=== PATIENT | male | born 1995 | race Two or more races ===

== ENCOUNTER 2022-03-13 14:22 | Emergency (ER) | payer OTHER ==
[~2022-03-13] VITALS: Ht 188 cm; Wt 90.7 kg
[~2022-03-13 14:22] MED LIST: ACYC400 PO; ALBU90OI INH; AMOX250 PO; HYDACE5 PO; IBUP600 PO; PRED10 PO; PRED20 PO; TRAM50 PO; TRIAOI IH
== END 2022-03-13 15:54 | disposition home or self-care (01) ==
LOC: ER 14:22
DX: S61.012A Laceration without foreign body of left thumb without damage to nail, initial encounter (principal); W45.8XXA Other foreign body or object entering through skin, initial encounter
CPT/HCPCS: 12001; 90714; 99282-25

== ENCOUNTER 2022-04-12 19:01 | Emergency (ER) | payer OTHER ==
[~2022-04-12] VITALS: Ht 188 cm; Wt 68.0 kg
[2022-04-12] MEDS ORDERED: NARCAN4 M1 NS (21:41)
== END 2022-04-13 02:49 | disposition home or self-care (01) ==
LOC: ER 19:01
DX: T40.411A Poisoning by fentanyl or fentanyl analogs, accidental (unintentional), initial encounter (principal); Y92.481 Parking lot as the place of occurrence of the external cause
CPT/HCPCS: 99284

== ENCOUNTER 2022-07-10 08:25 | Emergency (ER) | payer OTHER ==
[~2022-07-10] VITALS: Ht 188 cm; Wt 88.5 kg
[~2022-07-10 08:25] MED LIST changes: +NARCAN4 M1 NS
[2022-07-10 09:48] LABS: BASOPHILS ABSOLUTE AUTO 0.03 K/mm3 (0.00-0.23); BASOPHILS PERCENT AUTO 0 % (0-2); EOSINOPHILS ABSOLUTE AUTO 0.01 K/mm3 (0.00-0.68); EOSINOPHILS PERCENT AUTO 0 % (0-6); Hematocrit 45.6 % (37.0-53.0); Hemoglobin 14.8 g/dL (13.5-17.5); IMMATURE GRAN ABSOLUTE AUTO 0.03 K/mm3 (0.00-0.10); IMMATURE GRAN PERCENT AUTO 0 % (0-1); LYMPHOCYTES PERCENT AUTO 11 % (21-46); MONOCYTES ABSOLUTE AUTO 0.66 K/mm3 (0.16-1.47); MONOCYTES PERCENT AUTO 6 % (4-13); Mean Corpuscular HGB 27.1 pg (26.0-34.0); Mean Corpuscular HGB Conc 32.5 g/dL (31.5-36.5); Mean Corpuscular Volume 83 fL (80-100); Mean Platelet Volume 8.9 fL (9.1-12.4); NEUTROPHILS ABSOLUTE AUTO 9.66 K/mm3 (1.96-9.15); NEUTROPHILS PERCENT AUTO 83 % (41-73); Platelet Count 280 K/mm3 (150-400); RDW Coefficient Variation 12.4 % (11.7-14.2); RDW Standard Deviation 37.4 fL (35.1-46.3); Red Blood Cell Count 5.47 M/mm3 (4.30-5.90); White Blood Cell Count 11.69 K/mm3 (4.00-11.30)
[2022-07-10 10:02] LABS: Albumin, Blood 4.2 g/dL (3.4-5.0); Bilirubin, Total 0.5 mg/dL (0.1-1.0); Bun/Creatinine Ratio 11.2 (12.0-20.0); Calcium, Blood 9.5 mg/dL (8.5-10.1); Creatinine, Blood 0.99 mg/dL (0.60-1.20); Potassium, Blood 3.7 mmol/L (3.5-5.5); Total Protein, Blood 8.2 g/dL (6.4-8.2)
== END 2022-07-10 11:25 | disposition home or self-care (01) ==
LOC: ER 08:25
PROVIDERS: Student in an Organized Health Care Education/Training Program
DX: R07.9 Chest pain, unspecified (principal); F17.210 Nicotine dependence, cigarettes, uncomplicated
CPT/HCPCS: 36415; 71046; 80053; 83880; 84484; 85025; 93005; 93010; A9270; J7030

== ENCOUNTER 2024-08-28 15:45 | Emergency (ER) | payer SELFPAY ==
[~2024-08-28] VITALS: Ht 188 cm; Wt 86.2 kg
[2024-08-28 15:52] VITALS: BP 160/95
[2024-08-28] MEDS ORDERED: HYDROcodone 5-APAP 325 TAB PO ONE (16:55)
[2024-08-28] MEDS ORDERED: Ibuprofen 400 MG Tab PO ONE (16:55)
== END 2024-08-28 17:19 | disposition home or self-care (01) ==
LOC: ER 15:45
DX: S61.412A Laceration without foreign body of left hand, initial encounter (principal); F17.210 Nicotine dependence, cigarettes, uncomplicated; W26.0XXA Contact with knife, initial encounter
CPT/HCPCS: 12002; 99282-25

== ENCOUNTER 2024-09-06 06:32 | Day surgery (SDC) | payer SELFPAY ==
[~2024-09-06] VITALS: Ht 188 cm; Wt 88.7 kg
[2024-09-06] MEDS ORDERED: CeFAZolin Sodium 2,000 MG VIAL ONE (06:39)
[2024-09-06] MEDS ORDERED: NS 500 ML IV ONE (07:17)
[2024-09-06] MEDS ORDERED: Midazolam HCl 1MG / ML 2ML Vial ONE (07:41)
[2024-09-06] MEDS ORDERED: FentaNYL Citrate 50 MCG/ML 2 ML Injection ONE ×2 (07:41→09:48)
[2024-09-06] MEDS ORDERED: propofoL 20 ML IV ONE ×2 (07:41→08:21)
[2024-09-06] MEDS ORDERED: Ketorolac Tromethamine 30mg Vial ONE (07:43)
[2024-09-06] MEDS ORDERED: Ondansetron HCl 2 MG / ML 2ML Vial ONE (07:43)
[2024-09-06] MEDS ORDERED: Dexamethasone Sod Phos 10 MG/ML 1ML VIAL ONE (07:43)
[2024-09-06] MEDS ORDERED: Lidocaine HCl 2% 10 ML SDA INJ ONE ×2 (08:33)
--- NOTE | 2024-09-06 08:57 | NUR ---
09/06/24 0857 SAIDA ZAVALA VITALS AT THIS TIME ARE ALL VERY GOOD. BP 119/74, P 91, O2 SAT IS 100 ON 9L. WILL DECREASE O2 TO 5- TRIAL
[2024-09-06 09:56] VITALS: BP 131/88
--- NOTE | 2024-09-06 10:45 | NUR ---
09/06/24 1045 Bhavesh Hutchins PT STATED HE WAS UNAWARE WHETHER DR. TEMPLE HAD ESCRIPTED PERSCRIPTION OR WHERE IT MIGHT HAVE GONE TO. DR. TEMPLE CALLED. DR. TEMPLE STATED PHYSICHAL PERSCRTIPTION HAD ALREADY BEEN GIVEN TO PT (BUT NOT FILLED) , AND PT SHOULD USE THAT PERSCRIPTION. PT WAS INSTRUCTED TO FILL PERSCRIPTION IMMEDIATELY AND TAKE DIRECTED. PRIOR TO D/C, PT DESCRIBED PAIN TOLERABLE, DENIED NAUSEA, AND EXPRESSED READINESS TO RETURN HOME. HE APPEARED ALERT AND RELAXED. FLACC 110.
== END 2024-09-06 10:35 | disposition home or self-care (01) ==
LOC: ORSCSDS 06:32
PROVIDERS: Orthopaedic Surgery
PROC: 0LQ80ZZ Repair Left Hand Tendon, Open Approach (ICD-10-PCS; principal; 2024-09-06 08:15)
DX: S61.238A Puncture wound without foreign body of other finger without damage to nail, initial encounter (principal); W26.0XXA Contact with knife, initial encounter; F17.210 Nicotine dependence, cigarettes, uncomplicated; Z86.19 Personal history of other infectious and parasitic diseases
CPT/HCPCS: J0690; J1100; J1885; J2003; J2250; J2405; J2704; J3010

== ENCOUNTER 2024-09-16 20:43 | Emergency (ER) | payer SELFPAY ==
[~2024-09-16] VITALS: Ht 188 cm; Wt 86.2 kg
[2024-09-16 21:11] VITALS: BP 144/89
[2024-09-16] MEDS ORDERED: Acetaminophen 325 MG TABLET PO ONE (21:20)
[2024-09-16] MEDS ORDERED: Ketorolac Tromethamine 15mg Vial IM ONE (21:20)
== END 2024-09-16 21:36 | disposition home or self-care (01) ==
LOC: ER 20:43
DX: S56.402A Unspecified injury of extensor muscle, fascia and tendon of left index finger at forearm level, initial encounter (principal); F17.210 Nicotine dependence, cigarettes, uncomplicated; X58.XXXA Exposure to other specified factors, initial encounter; Z98.890 Other specified postprocedural states
CPT/HCPCS: 96372; 99283-25; A9270; J1885

== ENCOUNTER 2024-09-30 10:47 | Day surgery (SDC) | payer SELFPAY ==
[~2024-09-30] VITALS: Ht 188 cm; Wt 89.9 kg
[~2024-09-30 10:47] MED LIST changes: +Lactated Ringer's 1,000 ML IV ONE; +Lidocaine HCl 2% 10 ML SDA ONE; +NS 0 ML IV ONE
[2024-09-30] MEDS ORDERED: CeFAZolin Sodium 2,000 MG VIAL ONE (10:53)
[2024-09-30] MEDS ORDERED: Lactated Ringer's 1,000 ML IV ONE ×2 (11:02)
[2024-09-30] MEDS ORDERED: Acetaminophen 500 MG Tab ONE (11:23)
[2024-09-30] MEDS ORDERED: Metoclopramide HCl 5MG / ML 2ML Vial ONE (11:38)
[2024-09-30] MEDS ORDERED: Ondansetron HCl 2 MG / ML 2ML Vial ONE (11:38)
[2024-09-30] MEDS ORDERED: propofoL 20 ML IV ONE (12:07)
--- NOTE | 2024-09-30 12:08 | NUR ---
09/30/[address] CALLED IN TO ASSIST IN ANOTHER CASE PRIOR TO PATIENT SEDATION FOR SURGICAL CASE, CAUSING DELAY FROM IN OR TO SURGICAL START
[2024-09-30] MEDS ORDERED: FentaNYL Citrate 50 MCG/ML 2 ML Injection ONE (12:58)
--- NOTE | 2024-09-30 13:22 | NUR ---
09/30/24 1322 Karen Garcia CALLED AND UPDATED SIGNIFICANT OTHER
[2024-09-30 13:23] VITALS: BP 126/82
== END 2024-09-30 14:16 | disposition home or self-care (01) ==
LOC: ORSCSDS 10:47
PROVIDERS: Orthopaedic Surgery
PROC: 0LN80ZZ Release Left Hand Tendon, Open Approach (ICD-10-PCS; principal; 2024-09-30 12:15)
PROC: 0LQ80ZZ Repair Left Hand Tendon, Open Approach (ICD-10-PCS; principal; 2024-09-30 12:15)
DX: S66.321D Laceration of extensor muscle, fascia and tendon of left index finger at wrist and hand level, subsequent encounter (principal); M79.642 Pain in left hand; F17.210 Nicotine dependence, cigarettes, uncomplicated
CPT/HCPCS: A9270; J0690; J2003; J2405; J2704; J2765; J3010; J7040; J7120

== ENCOUNTER 2024-10-08 21:18 | Emergency (ER) | payer OTHER ==
[~2024-10-08] VITALS: Ht 177.8 cm; Wt 86.2 kg
[~2024-10-08 21:18] MED LIST changes: -Lactated Ringer's 1,000 ML IV ONE; -Lidocaine HCl 2% 10 ML SDA ONE; -NS 0 ML IV ONE
[2024-10-08 21:27] VITALS: BP 139/91
[2024-10-08] MEDS ORDERED: SULTRIDS PO (21:44)
[2024-10-08] MEDS ORDERED: Trimethoprim/Sulfamethoxazole DS Tab PO ONE (21:45)
== END 2024-10-08 22:09 | disposition home or self-care (01) ==
LOC: ER 21:18
DX: T81.49XA Infection following a procedure, other surgical site, initial encounter (principal); L03.114 Cellulitis of left upper limb; F17.210 Nicotine dependence, cigarettes, uncomplicated
CPT/HCPCS: 99283; A9270